=== PATIENT | male | born 1975 | race Caucasian/White ===

== ENCOUNTER 2021-03-03 19:30 | Emergency (ER) | payer SELFPAY ==
[~2021-03-03 19:30] MED LIST: DAYPRO600 M1 PO; KEFLEX500 MG PO; NKHM; PEN-VEE K500 MG PO; ROBAXIN750 MG PO; TRAMADOL HCL50 MG PO; ULTRAM50 MG PO; VICODIN 500 MG-1 TAB PO; VOLTAREN75 MG PO; ZOFRAN ODT4 MG SL
== END 2021-03-03 20:27 | disposition left against medical advice (07) ==
LOC: ED 19:30
DX: H57.89 Other specified disorders of eye and adnexa (principal); Z53.21 Procedure and treatment not carried out due to patient leaving prior to being seen by health care provider

== ENCOUNTER 2021-05-29 17:16 | Emergency (ER) | payer OTHER | END 2021-05-29 17:44 | LOC: ED 17:16 | DX: S20.211A Contusion of right front wall of thorax, initial encounter (principal); V49.9XXA Car occupant (driver) (passenger) injured in unspecified traffic accident, initial encounter; Y93.89 Activity, other specified; Y92.89 Other specified places as the place of occurrence of the external cause; Y99.8 Other external cause status ==

== ENCOUNTER 2023-08-28 16:43 | Emergency (ER) | payer SELFPAY ==
[~2023-08-28] VITALS: Ht 177.8 cm; Wt 83.9 kg
[2023-08-28 17:10] LABS: BASO % 0.5 % (0.0-1.0); EOS # 0.1 10*3/uL (0.0-0.4); EOS % 1.5 % (1.0-4.0); HEMATOCRIT 40.5 % (42.0-52.0); LYMPH # 2.6 10*3/uL (1.3-4.4); LYMPH % 30.6 % (27.0-41.0); MEAN CELL VOLUME 87.5 fl (80.0-94.0); MEAN CORPUSCULAR HGB 29.2 pg (27.0-31.0); MEAN CORPUSCULAR HGB CONC 33.3 g/dl (33.0-37.0); MEAN PLATELET VOLUME 8.7 fl (9.6-12.3); MONO # 0.7 10*3/uL (0.1-1.0); MONO % 8.5 % (3.0-9.0); NEUT % 58.3 % (47.0-73.0); PLATELET COUNT AUTOMATED 297 10*3/uL (130-400); RED BLOOD COUNT 4.63 10*6/uL (4.50-5.90); RED CELL DISTRI WIDTH 12.7 % (0-14.5); WHITE BLOOD COUNT 8.5 10*3/uL (4.8-10.8)
[2023-08-28 17:26] LABS: BUN 8 mg/dl (9-23); CHLORIDE 106 mmol/L (98-107); POTASSIUM 3.7 mmol/L (3.4-5.1)
== END 2023-08-28 19:49 | disposition home or self-care (01) ==
LOC: ED
PROVIDERS: Internal Medicine
DX: R07.89 Other chest pain (principal); M25.512 Pain in left shoulder; R51.9 Headache, unspecified; M25.511 Pain in right shoulder; R06.02 Shortness of breath; F17.200 Nicotine dependence, unspecified, uncomplicated